=== PATIENT | male | born 1955 ===

== ENCOUNTER 2022-03-06 08:15 | Inpatient (IN) | payer OTHER ==
[~2022-03-06] VITALS: Ht 172.7 cm; Wt 113.4 kg
[2022-03-06] MEDS ORDERED: TOPROL XL100 M1 PO (09:04)
[2022-03-06] MEDS ORDERED: OMEGA 3 1,0001 EACH PO (09:05)
[2022-03-06] MEDS ORDERED: CHLORTHALIDONE25 MG PO (09:05)
[2022-03-06] MEDS ORDERED: SYNJARDY 5-1,01 EACH PO (09:06)
[2022-03-06] MEDS ORDERED: ARICEPT10 MG PO (09:06)
[2022-03-06] MEDS ORDERED: [UNRECOGNIZED DRUG - OTHER] PO (09:08)
[2022-03-11] MEDS ORDERED: VITAMIN D31250 MCG (09:37)
[2022-03-11] MEDS ORDERED: AMLODIPINE-VAL1 EAC2 (09:37)
[2022-03-11] MEDS ORDERED: METOPROLOL TAR100 MG (09:37)
[2022-03-11] MEDS ORDERED: OMEGA-3 ACID ETH1 GM (09:38)
== END 2022-03-13 19:15 | disposition home or self-care (01) | DRG 470 ==
LOC: O/R 03-11 06:31 → SURG 03-11 06:31 → SURH 03-11 07:00 → SURG 03-11 13:06
PROVIDERS: ADMIT Orthopaedic Surgery; ATTEND Orthopaedic Surgery
PROC: 0SRC0J9 Replacement of Right Knee Joint with Synthetic Substitute, Cemented, Open Approach (ICD-10-PCS; principal; 2022-03-11 07:00)
DX: M17.11 Unilateral primary osteoarthritis, right knee (principal); D62 Acute posthemorrhagic anemia; M85.661 Other cyst of bone, right lower leg; M85.861 Other specified disorders of bone density and structure, right lower leg; I11.0 Hypertensive heart disease with heart failure; E11.9 Type 2 diabetes mellitus without complications; G47.33 Obstructive sleep apnea (adult) (pediatric)

== ENCOUNTER 2023-07-13 08:20 | Inpatient (IN) | payer OTHER ==
[~2023-07-13] VITALS: Ht 172.7 cm; Wt 122.5 kg
[~2023-07-13 08:20] MED LIST: AMLODIPINE-VAL1 EAC2; ARICEPT10 MG PO; CHLORTHALIDONE25 MG PO; METOPROLOL TAR100 MG; OMEGA 3 1,0001 EACH PO; OMEGA-3 ACID ETH1 GM; SYNJARDY 5-1,01 EACH PO; TOPROL XL100 M1 PO; VITAMIN D31250 MCG; [UNRECOGNIZED DRUG - OTHER] PO
[2023-07-14] MEDS ORDERED: [UNRECOGNIZED DRUG - OTHER] PO (11:11)
[2023-07-14] MEDS ORDERED: GLUCOSA PO (11:11)
[2023-07-14] MEDS ORDERED: MEMANTINE HCL E28 MG PO (11:12)
[2023-07-14] MEDS ORDERED: AMLODIP PO (11:12)
[2023-07-14] MEDS ORDERED: VALSART PO (11:12)
[2023-07-14] MEDS ORDERED: ADULT LOW DOSE81 M1 PO (11:13)
[2023-07-14 11:30] LABS: URINE APPEARANCE Clear; URINE BILIRRUBIN Negative (NEGATIVE); URINE BLOOD Negative; URINE COLOR Yellow; URINE LEUKOCYTE Negative; URINE NITRATE Negative; URINE PROTEIN Negative (NEGATIVE); URINE UROBILINOGEN 0.2 E.U./dl
[2023-07-14 11:33] LABS: HEMATOCRIT 50.2 % (39.0-48.0); HEMOGLOBIN 16.6 g/dL (13-16.00); MEAN CORPUSCULAR HEMOGLOBIN 29.8 pg (27.00-32.0); MEAN CORPUSCULAR HGB CONC 33.1 g/dl (32.0-36.0); PLATELET COUNT 238 K/uL (150-450); RED BLOOD COUNT 5.57 M/uL (4.00-6.00); RED CELL DISTRIBUTION WIDTH 13.9 % (11.5-14.5)
[2023-07-14 11:34] LABS: URINE EPITHELIAL CELLS 7.6 uL (0.0-38.8); URINE WBC 3.5 uL (0.0-23.2)
[2023-07-14 11:50] LABS: URINE GLUCOSE >=1000 MG/DL (NEGATIVE); URINE RBC 1.4 uL (0.0-20.8)
[2023-07-14 11:56] LABS: ALBUMIN 4.3 gm/dL (3.4-5.0); BILIRUBIN TOTAL 0.87 mg/dL (0.3-1.2); CALCIUM 10.2 mg/dL (8.5-10.1); CREATININE SERUM 1.04 mg/dL (0.70-1.30); GFR 70.6; GLOBULINA 3.8 G/DL (2.4-3.5); POTASSIUM 3.93 mEq/L (3.5-5.1); TOTAL PROTEIN 8.1 gm/dL (6.4-8.2)
[2023-07-14 11:59] LABS: INR 1.02; PARTIAL THROMBOPLASTIN TIME 25.1 SECONDS (22.0-34.0); PROTHROMBIN TIME 10.7 SECONDS (9.0-11.5)
[2023-07-21] MEDS ORDERED: AMLODIPINE-VAL1 EAC2 (11:47)
[2023-07-21] MEDS ORDERED: CHLORTHALIDONE25 MG (11:47)
[2023-07-22 08:07] LABS: HEMATOCRIT 37.9 % (39.0-48.0); HEMOGLOBIN 13.1 g/dL (13-16.00); MEAN CELL VOLUME 88.8 fL (80.0-100.00); MEAN CORPUSCULAR HEMOGLOBIN 30.7 pg (27.00-32.0); MEAN CORPUSCULAR HGB CONC 34.6 g/dl (32.0-36.0); PLATELET COUNT 170 K/uL (150-450); RED BLOOD COUNT 4.26 M/uL (4.00-6.00); RED CELL DISTRIBUTION WIDTH 13.9 % (11.5-14.5)
[2023-07-23 06:58] LABS: HEMATOCRIT 37.1 % (39.0-48.0); HEMOGLOBIN 12.9 g/dL (13-16.00); MEAN CELL VOLUME 89.1 fL (80.0-100.00); MEAN CORPUSCULAR HGB CONC 34.8 g/dl (32.0-36.0); PLATELET COUNT 170 K/uL (150-450); RED BLOOD COUNT 4.16 M/uL (4.00-6.00); RED CELL DISTRIBUTION WIDTH 13.6 % (11.5-14.5)
[2023-07-23] MEDS ORDERED: OXYC1TAB9 PO (12:46)
[2023-07-23] MEDS ORDERED: NORFLEX100MG PO (12:46)
[2023-07-23] MEDS ORDERED: GABAPENTIN100 MG PO (12:46)
[2023-07-23] MEDS ORDERED: XARELTO10 M1 PO (12:47)
== END 2023-07-23 17:41 | DRG 470 ==
LOC: O/R 07-21 06:00 → SURH 07-21 06:00
PROVIDERS: ADMIT Orthopaedic Surgery; ATTEND Orthopaedic Surgery
PROC: 0SRD0JZ Replacement of Left Knee Joint with Synthetic Substitute, Open Approach (ICD-10-PCS; principal; 2023-07-21 09:15)
DX: M17.12 Unilateral primary osteoarthritis, left knee (principal); D62 Acute posthemorrhagic anemia; M85.662 Other cyst of bone, left lower leg; I10 Essential (primary) hypertension; E11.9 Type 2 diabetes mellitus without complications